=== PATIENT | male | born 1990 | race Hispanic/Latino ===

== ENCOUNTER 2020-09-01 19:17 | Emergency (ER) | payer SELFPAY ==
[2020-09-01] MEDS ORDERED: Ibuprofen 200 MG TAB ONE (19:51)
--- NOTE | 2020-09-01 21:14 | RAD ---
Left RIBS 2 views Chest one view HISTORY: Chest injury. FINDINGS: No displaced rib fracture or pneumothorax are apparent. Cardiac silhouette and pulmonary vasculature are unremarkable. Mediastinum is midline. No lobar conso lidation. IMPRESSION : No abnormalities are demonstrated.
== END 2020-09-01 21:22 | disposition home or self-care (01) ==
LOC: NAV ERS 19:17
DX: S20.212A Contusion of left front wall of thorax, initial encounter (principal); F17.210 Nicotine dependence, cigarettes, uncomplicated; V89.2XXA Person injured in unspecified motor-vehicle accident, traffic, initial encounter